=== PATIENT | male | born 1970 | race African-American/Black ===

== ENCOUNTER 2019-06-24 12:34 | Inpatient (IN) | payer OTHER ==
[2019-06-24 12:58] VITALS: BMI 27.0
--- NOTE | 2019-06-24 13:49 | HP ---
CIWA Score Nausea/Vomitin Muscle Tremors: 3 Anxiety: 3 Agitation: 2 Paroxysmal Sweats: 1-Minimal Palms Moist Orientation: 0-Oriented Tacttile Disturbances: 1-Very Mild Itch/Numbness Auditory Disturbances: 0-None Visual Disturbances: 0-None Headache: 2-Mild CIWA-Ar Total Score: 14 - Admission Criteria OASAS Guidelines: Admission for Medically Managed Detox: Requires at least one of the followin. CIWA greater than 12 2. Seizures within the past 24 hours 3. Delirium tremens within the past 24 hours 4. Hallucinations within the past 24 hours 5. Acute intervention needed for co occurring medical disorder 6. Acute intervention needed for co occurring psychiatric disorder 7. Severe withdrawal that cannot be handled at a lower level of care (continued vomiting, continued diarrhea, abnormal vital signs) requiring intravenous medication and/or fluids 8. Admitting History and Physical - Admission Chief Complaint: i need help to stop drinking alcohol,ccoaine,marijuana History of Present Illness: this 48 years old male with alcohol and cocaine dependence,marijuna dependence seeking detox,last detox [facility] in 05/05 denied seizure denied syncope History Source: Patient Limitations to Obtaining History: No Limitations - Past Surgical History Past Surgical History: Yes: None - Smoking History Smoking history: Current every day smoker Have you smoked in the past 12 months: Yes Aproximately how many cigarettes per day: 10 - Alcohol/Substance Use Hx Alcohol Use: Yes History of Substance Use: reports: Cocaine, Marijuana - Social History Usual Living Arrangement: Yes: Other (live with uncle) Occupation: unemployed History of Recent Travel: Yes Admission [facility] Chief Complaint: i need help to stop drinking alcohol,cocaine and marijuana Allergies/Adverse Reactions: Allergies Allergy/AdvReac Type Severity Reaction Status Date / Time No Known Drug Allergies Allergy Verified 06/24/19 12:54 History of Present Illness: this 48 years old male with alcohol,cocaine and marijuana dependence,seeking detox, withdrawal symptom last detox [facility] in 05/05 nicotine dependence 10 cigarette/day weight loss had previous admission before longest period of sobriety 1 year plan for rehab after detox Exam Limitations: No Limitations - Ebola screening Have you traveled outside of the country in the last 21 days: No Have you had contact with anyone from an Ebola affected area: No - Review of Systems Constitutional: Loss of Appetite, Malaise, Night Sweats, Changes in sleep, Weakness, Unintentional Wgt. Loss EENT: reports: Nose Congestion Respiratory: reports: No Symptoms reported Cardiac: reports: No Symptoms Reported GI: reports: Nausea, Poor Appetite, Abdominal cramping : reports: No Symptoms Reported Musculoskeletal: reports: Back Pain, Muscle Pain Integumentary: reports: Dryness Neuro: reports: Headache, Tremors Endocrine: reports: No Symptoms Reported Hematology: reports: No Symptoms Reported Psychiatric: reports: No Sypmtoms Reported, Judgement Intact, Mood/Affect Appropiate, Orientated x3, other (insomnia) Other Systems: Reviewed and Negative Patient History - Patient Medical History Hx Anemia: No Hx Asthma: No Hx Chronic Obstructive Pulmonary Disease (COPD): No Hx Cancer: No Hx Cardiac Disorders: No Hx Congestive Heart Failure: No Hx Hypertension: No Hx Hypercholesterolemia: No Hx Pacemaker: No Hx Seizures: No Hx Dementia: No Hx Diabetes: No Hx Gastrointestinal Disorders: No Hx Liver Disease: No Hx Genitourinary Disorders: No Hx Sexually Transmitted Disorders: No Hx Renal Disease (ESRD): No Hx Thyroid Disease: No Hx Human Immunodeficiency Virus (HIV): No (last 2018 negative) Hx Hepatitis C: No Hx Depression: Yes Hx Suicide Attempt: No Hx Bipolar Disorder: No Hx Schizophrenia: No Other Medical History: no suicidal,no homicidal - Patient Surgical History Past Surgical History: No Hx Neurologic Surgery: No Hx Cataract Extraction: No Hx Cardiac Surgery: No Hx Lung Surgery: No Hx Breast Surgery: No Hx Breast Biopsy: No Hx Abdominal Surgery: No Hx Appendectomy: No Hx Cholecystectomy: No Hx Genitourinary Surgery: No Hx Section: No Hx Orthopedic Surgery: No Anesthesia Reaction: No - PPD History Previous Implant?: Yes Documented Results: Positive w/o proof Date: 03/20/15 Results: NEGATIVE CXR PPD to be Administered?: No - Smoking Cessation Smoking history: Current every day smoker Have you smoked in the past 12 months: Yes Aproximately how many cigarettes per day: 10 Hx Chewing Tobacco Use: No Initiated information on smoking cessation: Yes 'Breaking Loose' booklet given: 06/24/19 - Substance & Tx. History Hx Alcohol Use: Yes Hx Substance Use: Yes Substance Use Type: Alcohol, Cocaine Hx Substance Use Treatment: Yes ([facility] in 05/05) - Substances abused Alcohol Substance route: Oral Frequency: Daily Amount used: 4 six packs of 16oz beers Age of first use: 10 Date of last use: 06/23/19 Cocaine Substance route: Smoking Frequency: Daily Amount used: $80/day Age of first use: 14 Date of last use: 06/22/19 Marijuana/Hashish Substance route: Smoking Frequency: Daily Amount used: 5$ Age of first use: 10 Date of last use: 06/23/19 Admission Physical Exam [facility] - Vital Signs Vital Signs: Vital Signs - 24 hr 06/24/19 12:55 Temperature 97.7 F Pulse Rate 91 H Respiratory 16 Rate Blood Pressure 143/83 - Physical General Appearance: Yes: Moderate Distress, Tremorous, Irritable, Sweating, Anxious HEENTM: Yes: Normal ENT Inspection, MARTY, Pharynx Normal Respiratory: Yes: Lungs Clear, Normal Breath Sounds, No Respiratory Distress Neck: Yes: Within Normal Limits, Supple, Trachea in good position Breast: Yes: Within Normal Limits Cardiology: Yes: Within Normal Limits, Regular Rhythm, Regular Rate, S1, S2 Abdominal: Yes: Within Normal Limits, Normal Bowel Sounds, Non Tender, Soft Genitourinary: Yes: Within Normal Limits Back: Yes: Muscle Spasm Musculoskeletal: Yes: Back pain, Muscle Pain, Other (mild painin the left knee) Extremities: Yes: Tremors 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: 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: 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 NML intact, Fully Oriented, Alert, Motor Strength 5/5 Integumentary: Yes: Clammy Lymphatic: Yes: Within Normal Limits - Diagnostic (1) Alcohol dependence with withdrawal, uncomplicated Current Visit: No Status: Acute (2) Cannabis dependence, uncomplicated Current Visit: No Status: Acute (3) Cocaine dependence, uncomplicated Current Visit: No Status: Acute (4) Nicotine dependence Current Visit: No Status: Chronic Qualifiers: Nicotine product type: cigarettes Substance use status: uncomplicated Qualified Code(s): F17.210 - Nicotine dependence, cigarettes, uncomplicated (5) Positive PPD Current Visit: Yes Status: Acute Cleared for Admission [facility] - Detox or Rehab [facility] Level of Care: Medically Managed (ativan regimen) Detox Regimen/Protocol: Not Applicable (ativan regimen) Breathalyzer - Breathalyzer Breathalyzer: 0.006 Urine Drug Screen - Test Device Lot number: [id number] Expiration date: 02/14/21 - Control Is test valid?: Yes - Results Drug screen NEGATIVE: No Urine drug screen results: THC-Marijuana, RAÚL-Cocaine Inpatient Rehab Admission - Rehab Decision to Admit Inpatient rehab admission?: No
[2019-06-24] MEDS ORDERED: MENTHOL/PHENOL 1 EACH UD MM PRN (13:56)
[2019-06-24] MEDS ORDERED: hydrOXYzine PAMOATE 25 MG CAPSULE (FP) PO PRN (13:56)
[2019-06-24] MEDS ORDERED: METHOCARBAMOL 500 MG TABLET PO PRN (13:56)
[2019-06-24] MEDS ORDERED: MAGNESIUM HYDROX 2400MG/30ML ORAL SUSPENSION 30 ML CUP PO PRN (13:56)
[2019-06-24] MEDS ORDERED: MAG HYDROX/AL HYDROX/SIMETH 30 ML UNIT-DOSE CUP PO PRN (13:56)
[2019-06-24] MEDS ORDERED: MAGNESIUM CITRATE 300 ML BOTTLE PO PRN (13:56)
[2019-06-24] MEDS ORDERED: IBUPROFEN 400 MG TABLET (FP) PO PRN (13:56)
[2019-06-24] MEDS ORDERED: ACETAMINOPHEN 325 MG TABLET (FP) PO PRN ×2 (13:56)
[2019-06-24] MEDS ORDERED: LORazepam 1 MG TABLET PO PRN (13:56)
[2019-06-24] MEDS ORDERED: BISMUTH SUBSALICYLATE 524 MG/30 ML UD PO PRN (13:56)
[2019-06-24] MEDS: LORazepam 2 MG TABLET PO SCH ×2 (18:02→22:24)
[2019-06-24] MEDS: MELATONIN 5 MG TABLETS PO PRN (22:24)
[2019-06-24] MEDS: THIAMINE HCL 100 MG TABLET (FP) PO SCH (22:24)
[2019-06-25] MEDS: LORazepam 2 MG TABLET PO SCH ×4 (05:32→22:02)
--- NOTE | 2019-06-25 09:59 | PN ---
S CIWA - CIWA Score Nausea/Vomitin-Mild Nausea/No Vomiting Muscle Tremors: 3 Anxiety: 3 Agitation: 2 Paroxysmal Sweats: 2 Orientation: 1-Uncertain about Date Tacttile Disturbances: 0-None Auditory Disturbances: 0-None Visual Disturbances: 0-None Headache: 1-Very Mild CIWA-Ar Total Score: 13 BHS Progress Note (SOAP) Subjective: 48 years old male admitted on 06/24/19 for alcohol withdrawal sx treated with ativan detox regimen ate breakfast ambulating on hallway sleep through the night Objective: 06/25/19 09:58 Vital Signs Temperature 96.7 F L 06/25/19 09:27 Pulse Rate 101 H 06/25/19 09:27 Respiratory Rate 18 06/25/19 09:27 Blood Pressure 116/79 06/25/19 09:27 O2 Sat by Pulse Oximetry (%) 06/25/19 09:58 lab pending Assessment: 06/25/19 09:58 alcohol withdrawal sx Plan: continue ativan detox regimen
[2019-06-25] MEDS: PRENATAL VITAMINS W/ FOLIC ACID TABLET (FP) PO SCH (10:16)
[2019-06-25 11:01] LABS: HEMATOCRIT 40.6 % (35.4-49); HEMOGLOBIN 13.6 GM/dL (11.7-16.9); MCH 29.9 pg (25.7-33.7); MCHC 33.6 g/dl (32.0-35.9); MEAN CELL VOLUME 89.1 fl (80-96); MEAN PLT VOLUME 7.5 fl (7.5-11.1); PLATELET COUNT 237 K/MM3 (134-434); RBC 4.56 M/mm3 (4.00-5.60); RDW 14.3 % (11.9-15.9); WHITE BLOOD COUNT 3.7 K/mm3 (4.0-10.0)
[2019-06-25 11:13] LABS: BILIRUBIN,TOTAL 0.7 mg/dL (0.2-1); BLOOD UREA NITROGEN 9.7 mg/dL (7-18); CREATININE 0.9 mg/dL (0.55-1.3); POTASSIUM 3.5 mmol/L (3.5-5.1)
[2019-06-25] MEDS: THIAMINE HCL 100 MG TABLET (FP) PO SCH (22:02)
[2019-06-25] MEDS: MELATONIN 5 MG TABLETS PO PRN (22:02)
[2019-06-26] MEDS: LORazepam 1 MG TABLET PO SCH ×4 (06:02→22:15)
[2019-06-26] MEDS: PRENATAL VITAMINS W/ FOLIC ACID TABLET (FP) PO SCH (10:29)
--- NOTE | 2019-06-26 10:35 | PN ---
[facility] CIWA - CIWA Score Nausea/Vomitin-No Nausea/No Vomiting Muscle Tremors: 2 Anxiety: 2 Agitation: 1-Slight > Activity Paroxysmal Sweats: 1-Minimal Palms Moist Orientation: 1-Uncertain about Date (date of week) Tacttile Disturbances: 1-Very Mild Itch/Numbness Auditory Disturbances: 1-Very Mild Visual Disturbances: 0-None Headache: 1-Very Mild CIWA-Ar Total Score: 10 S Progress Note (SOAP) Subjective: 48 years old male admitted on 06/24/19 for alcohol withdrawal sx management treated with ativan detox regimen ate breakfast tolerated food and fluid well mild sweating warm shower for comfort Objective: 06/26/19 10:35 Vital Signs Temperature 98.9 F 06/26/19 09:24 Pulse Rate 85 06/26/19 09:24 Respiratory Rate 18 06/26/19 09:24 Blood Pressure 115/72 06/26/19 09:24 O2 Sat by Pulse Oximetry (%) Laboratory Last Values WBC 3.7 K/mm3 (4.0-10.0) L 06/25/19 07:50 RBC 4.56 M/mm3 (4.00-5.60) 06/25/19 07:50 Hgb 13.6 GM/dL (11.7-16.9) 06/25/19 07:50 Hct 40.6 % (35.4-49) 06/25/19 07:50 MCV 89.1 fl (80-96) 06/25/19 07:50 MCH 29.9 pg (25.7-33.7) 06/25/19 07:50 MCHC 33.6 g/dl (32.0-35.9) 06/25/19 07:50 RDW 14.3 % (11.9-15.9) 06/25/19 07:50 Plt Count 237 K/MM3 (134-434) 06/25/19 07:50 MPV 7.5 fl (7.5-11.1) 06/25/19 07:50 Sodium 140 mmol/L (136-145) 06/25/19 07:50 Potassium 3.5 mmol/L (3.5-5.1) 06/25/19 07:50 Chloride 105 mmol/L (98-107) 06/25/19 07:50 Carbon Dioxide 26 mmol/L (21-32) 06/25/19 07:50 Anion Gap 9 MMOL/L (8-16) 06/25/19 07:50 BUN 9.7 mg/dL (7-18) 06/25/19 07:50 Creatinine 0.9 mg/dL (0.55-1.3) 06/25/19 07:50 Est GFR (CKD-EPI)AfAm 115.02 06/25/19 07:50 Est GFR (CKD-EPI)NonAf 99.24 06/25/19 07:50 Random Glucose 89 mg/dL (74-106) 06/25/19 07:50 Calcium 9.0 mg/dL (8.5-10.1) 06/25/19 07:50 Total Bilirubin 0.7 mg/dL (0.2-1) 06/25/19 07:50 AST 19 U/L (15-37) 06/25/19 07:50 ALT 19 U/L (13-61) 06/25/19 07:50 Alkaline Phosphatase 63 U/L (45-117) 06/25/19 07:50 Total Protein 7.0 g/dl (6.4-8.2) 06/25/19 07:50 Albumin 3.0 g/dl (3.4-5.0) L 06/25/19 07:50 RPR Titer Nonreactive (NONREACTIVE) 06/25/19 07:50 lab noted Assessment: 06/26/19 10:35 alcohol withdrawal sx Plan: ativan regimen
[2019-06-26] MEDS: THIAMINE HCL 100 MG TABLET (FP) PO SCH (22:15)
[2019-06-26] MEDS: MELATONIN 5 MG TABLETS PO PRN (22:15)
[2019-06-27] MEDS ORDERED: LORazepam 0.5 MG TABLET PO PRN
[2019-06-27] MEDS: LORazepam 0.5 MG TABLET PO SCH ×4 (06:03→22:13)
[2019-06-27] MEDS: PRENATAL VITAMINS W/ FOLIC ACID TABLET (FP) PO SCH (10:44)
--- NOTE | 2019-06-27 12:00 | PN ---
S CIWA - CIWA Score Nausea/Vomitin-No Nausea/No Vomiting Muscle Tremors: 2 Anxiety: 2 Agitation: 1-Slight > Activity Paroxysmal Sweats: 1-Minimal Palms Moist Orientation: 0-Oriented Tacttile Disturbances: 0-None Auditory Disturbances: 0-None Visual Disturbances: 0-None Headache: 0-None Present CIWA-Ar Total Score: 6 BHS Progress Note (SOAP) Subjective: 48 years old male admitted on 06/24/19 for alcohol withdrawal sx management treated with ativan detox regimen ate breakfast and lunch feeling better today slept through the night discuss aftercare with staff Objective: 06/27/19 12:00 Vital Signs Temperature 98.4 F 06/27/19 09:28 Pulse Rate 79 06/27/19 09:28 Respiratory Rate 18 06/27/19 09:28 Blood Pressure 114/64 06/27/19 09:28 O2 Sat by Pulse Oximetry (%) Laboratory Last Values WBC 3.7 K/mm3 (4.0-10.0) L 06/25/19 07:50 RBC 4.56 M/mm3 (4.00-5.60) 06/25/19 07:50 Hgb 13.6 GM/dL (11.7-16.9) 06/25/19 07:50 Hct 40.6 % (35.4-49) 06/25/19 07:50 MCV 89.1 fl (80-96) 06/25/19 07:50 MCH 29.9 pg (25.7-33.7) 06/25/19 07:50 MCHC 33.6 g/dl (32.0-35.9) 06/25/19 07:50 RDW 14.3 % (11.9-15.9) 06/25/19 07:50 Plt Count 237 K/MM3 (134-434) 06/25/19 07:50 MPV 7.5 fl (7.5-11.1) 06/25/19 07:50 Sodium 140 mmol/L (136-145) 06/25/19 07:50 Potassium 3.5 mmol/L (3.5-5.1) 06/25/19 07:50 Chloride 105 mmol/L (98-107) 06/25/19 07:50 Carbon Dioxide 26 mmol/L (21-32) 06/25/19 07:50 Anion Gap 9 MMOL/L (8-16) 06/25/19 07:50 BUN 9.7 mg/dL (7-18) 06/25/19 07:50 Creatinine 0.9 mg/dL (0.55-1.3) 06/25/19 07:50 Est GFR (CKD-EPI)AfAm 115.02 06/25/19 07:50 Est GFR (CKD-EPI)NonAf 99.24 06/25/19 07:50 Random Glucose 89 mg/dL (74-106) 06/25/19 07:50 Calcium 9.0 mg/dL (8.5-10.1) 06/25/19 07:50 Total Bilirubin 0.7 mg/dL (0.2-1) 06/25/19 07:50 AST 19 U/L (15-37) 06/25/19 07:50 ALT 19 U/L (13-61) 06/25/19 07:50 Alkaline Phosphatase 63 U/L (45-117) 06/25/19 07:50 Total Protein 7.0 g/dl (6.4-8.2) 06/25/19 07:50 Albumin 3.0 g/dl (3.4-5.0) L 06/25/19 07:50 RPR Titer Nonreactive (NONREACTIVE) 06/25/19 07:50 lab noted Assessment: 06/27/19 12:00 alcohol withdrawal Plan: ativan regimen
[2019-06-27] MEDS: THIAMINE HCL 100 MG TABLET (FP) PO SCH (22:12)
[2019-06-28] MEDS ORDERED: LORazepam 0.5 MG TABLET PO ONE (05:00)
[2019-06-28 06:16] VITALS: BP 125/75; PULSE 70; TEMP 97.7
--- NOTE | 2019-06-28 11:33 | DS ---
[facility] Detox Discharge Summary Admission Date: 06/24/19 Discharge Date: 06/28/19 - History Present History: Alcohol Dependence Additional Comments: 48 years old male admitted on 06/24/19 for alcohol withdrawal sx management treated with ativan detox regimen patient completed ativan detox regimen today routine discharged today patient left the detox unit round 0730am today keno writer has not assessed nor evaluated the patient prior to be discharged - Physical Exam Results Vital Signs: Vital Signs Temperature 97.7 F 06/28/19 06:15 Pulse Rate 70 06/28/19 06:15 Respiratory Rate 18 06/28/19 06:15 Blood Pressure 125/75 06/28/19 06:15 O2 Sat by Pulse Oximetry (%) Pertinent Admission Physical Exam Findings: alcohol withdrawal sx Laboratory Last Values WBC 3.7 K/mm3 (4.0-10.0) L 06/25/19 07:50 RBC 4.56 M/mm3 (4.00-5.60) 06/25/19 07:50 Hgb 13.6 GM/dL (11.7-16.9) 06/25/19 07:50 Hct 40.6 % (35.4-49) 06/25/19 07:50 MCV 89.1 fl (80-96) 06/25/19 07:50 MCH 29.9 pg (25.7-33.7) 06/25/19 07:50 MCHC 33.6 g/dl (32.0-35.9) 06/25/19 07:50 RDW 14.3 % (11.9-15.9) 06/25/19 07:50 Plt Count 237 K/MM3 (134-434) 06/25/19 07:50 MPV 7.5 fl (7.5-11.1) 06/25/19 07:50 Sodium 140 mmol/L (136-145) 06/25/19 07:50 Potassium 3.5 mmol/L (3.5-5.1) 06/25/19 07:50 Chloride 105 mmol/L (98-107) 06/25/19 07:50 Carbon Dioxide 26 mmol/L (21-32) 06/25/19 07:50 Anion Gap 9 MMOL/L (8-16) 06/25/19 07:50 BUN 9.7 mg/dL (7-18) 06/25/19 07:50 Creatinine 0.9 mg/dL (0.55-1.3) 06/25/19 07:50 Est GFR (CKD-EPI)AfAm 115.02 06/25/19 07:50 Est GFR (CKD-EPI)NonAf 99.24 06/25/19 07:50 Random Glucose 89 mg/dL (74-106) 06/25/19 07:50 Calcium 9.0 mg/dL (8.5-10.1) 06/25/19 07:50 Total Bilirubin 0.7 mg/dL (0.2-1) 06/25/19 07:50 AST 19 U/L (15-37) 06/25/19 07:50 ALT 19 U/L (13-61) 06/25/19 07:50 Alkaline Phosphatase 63 U/L (45-117) 06/25/19 07:50 Total Protein 7.0 g/dl (6.4-8.2) 06/25/19 07:50 Albumin 3.0 g/dl (3.4-5.0) L 06/25/19 07:50 RPR Titer Nonreactive (NONREACTIVE) 06/25/19 07:50 lab noted - Treatment Hospital Course: Detox Protocol Followed, Responded well Patient has Accepted a Rehab Referral to: ready willing able - Medication Discharge Medications: Ambulatory Orders NK [No Known Home Medication] 05/28/15 - Diagnosis (1) Alcohol dependence with withdrawal, uncomplicated Status: Acute (2) Positive PPD Status: Resolved (3) Nicotine dependence Status: Acute Qualifiers: Nicotine product type: cigarettes Substance use status: in withdrawal Qualified Code(s): F17.213 - Nicotine dependence, cigarettes, with withdrawal - AMA Did Patient Leave Against Medical Advice: No
== END 2019-06-28 07:22 | disposition home or self-care (01) | DRG 774 ==
LOC: YASAS 12:34 → Y3N 14:05
PROVIDERS: ADMIT Allergy & Immunology; ATTEND Allergy & Immunology
PROC: HZ2ZZZZ Detoxification Services for Substance Abuse Treatment (ICD-10-PCS; principal; 2019-06-24)
DX: F10.230 Alcohol dependence with withdrawal, uncomplicated (principal); F14.20 Cocaine dependence, uncomplicated; F12.20 Cannabis dependence, uncomplicated; F17.213 Nicotine dependence, cigarettes, with withdrawal; R76.11 Nonspecific reaction to tuberculin skin test without active tuberculosis; R63.4 Abnormal weight loss; Z68.27 Body mass index [BMI] 27.0-27.9, adult
CPT/HCPCS: 36415; 71046-TC-FY; 80053; 85027; 86593

== ENCOUNTER 2020-02-06 11:01 | Inpatient (IN) | payer OTHER ==
--- NOTE | 2020-02-06 11:41 | BHS.RME ---
Substance Use & Tx History - Substance Use History Alcohol Substance amount: 2 pints Henessey, 2 x 6 pack of 12 ounce beer Frequency of use: Daily Substance route: Oral Date of Last Use: 02/06/20 (First drink age 10 y. No seizuer, no blackout. 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) Cocaine- Powder Substance amount: with Crack $100 Frequency of use: Daily Substance route: Smoking Date of Last Use: 02/04/20 (First use age 14 y) Cannabis Substance amount: $10 Frequency of use: Daily Substance route: Smoking Physical/Psych/Mental Status - Behavior General Behavior: Decreased activity Eye Contact: Normal - Cooperativeness Cooperativeness: Cooperative - Thinking Thought Processes: Tight Thought content: Future oriented - Physical Health Problems Is patient presently having any pain?: No Does patient presently have any injuries (include location): No Does patient currently have a fever: No CIWA Nausea/Vomitin-Mild Nausea/No Vomiting Muscle Tremors: 3 Anxiety: 4-Mod. Anxious/Guarded Agitation: 0-Normal Activity Paroxysmal Sweats: 1-Minimal Palms Moist Orientation: 3-Disoriented Date>2 days Tacttile Disturbances: 0-None Auditory Disturbances: 0-None Visual Disturbances: 0-None Headache: 0-None Present CIWA-Ar Total Score: 12
--- NOTE | 2020-02-06 13:01 | HP ---
CIWA Score Nausea/Vomitin-Mild Nausea/No Vomiting Muscle Tremors: 3 Anxiety: 4-Mod. Anxious/Guarded Agitation: 0-Normal Activity Paroxysmal Sweats: 1-Minimal Palms Moist Orientation: 3-Disoriented Date>2 days Tacttile Disturbances: 0-None Auditory Disturbances: 0-None Visual Disturbances: 0-None Headache: 0-None Present CIWA-Ar Total Score: 12 - Admission Criteria OASAS Guidelines: Admission for Medically Managed Detox: Requires at least one of the followin. CIWA greater than 12 2. Seizures within the past 24 hours 3. Delirium tremens within the past 24 hours 4. Hallucinations within the past 24 hours 5. Acute intervention needed for co occurring medical disorder 6. Acute intervention needed for co occurring psychiatric disorder 7. Severe withdrawal that cannot be handled at a lower level of care (continued vomiting, continued diarrhea, abnormal vital signs) requiring intravenous medication and/or fluids 8. Admitting History and Physical - Admission Chief Complaint: " I neeed to stop drinking and using cocaine." History of Present Illness: 49 year old male with history of alcohol dependence with withdrawal, cocaine use disorder, cannabis use disorder, nicotine dependence. She was last here in [facility] 06/24-06/28/19 and completed detox ( Ativan Treatment) Substance Use & Tx History - Substance Use History Alcohol Substance amount: 2 pints Henessey, 2 x 6 pack of 12 ounce beer Frequency of use: Daily Substance route: Oral Date of Last Use: 02/06/20 (First drink age 10 y. No seizuer, no blackout. 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 SEYMOUR: 0 CIWA: 12 Patient meets criteria due to poor environment for recovery, poor judgment into her disorder and is at high risk for relapse. History Source: Patient Limitations to Obtaining History: No Limitations - Past Surgical History Past Surgical History: Yes: Hernia Repair - Smoking History Smoking history: Current every day smoker Have you smoked in the past 12 months: Yes Aproximately how many cigarettes per day: 10 - Alcohol/Substance Use Hx Alcohol Use: Yes History of Substance Use: reports: Cocaine, Marijuana - Social History Usual Living Arrangement: Yes: Other Do you think of yourself as: Straight/Heterosexual ADL: Independent Occupation: unemployed History of Recent Travel: Yes Admission [facility] Allergies/Adverse Reactions: Allergies Allergy/AdvReac Type Severity Reaction Status Date / Time No Known Drug Allergies Allergy Verified 06/24/19 12:54 Exam Limitations: No Limitations - Ebola screening Have you traveled outside of the country in the last 21 days: No Have you had contact with anyone from an Ebola affected area: No Have you been sick,other than usual withdrawal symptoms: No Do you have a fever: No - Review of Systems Constitutional: Chills, Diaphoresis, Unintentional Wgt. Loss EENT: reports: No Symptoms Reported Respiratory: reports: No Symptoms reported Cardiac: reports: No Symptoms Reported GI: reports: No Symptoms Reported : reports: No Symptoms Reported Musculoskeletal: reports: No Symptoms Reported Integumentary: reports: No Symptoms Reported Neuro: reports: No Symptoms reported Endocrine: reports: No Symptoms Reported Hematology: reports: No Symptoms Reported Psychiatric: reports: Judgement Intact, Mood/Affect Appropiate, Orientated x3, Agitated, Anxious Other Systems: Reviewed and Negative Patient History - Patient Medical History Hx Anemia: No Hx Asthma: No Hx Chronic Obstructive Pulmonary Disease (COPD): No Hx Cancer: No Hx Cardiac Disorders: No Hx Congestive Heart Failure: No Hx Hypertension: No Hx Hypercholesterolemia: No Hx Pacemaker: No Hx Seizures: No Hx Dementia: No Hx Diabetes: No Hx Gastrointestinal Disorders: No Hx Liver Disease: No Hx Genitourinary Disorders: No Hx Sexually Transmitted Disorders: No Hx Renal Disease (ESRD): No Hx Thyroid Disease: No Hx Human Immunodeficiency Virus (HIV): No (last 2018 negative) Hx Hepatitis C: No Hx Depression: Yes Hx Suicide Attempt: No Hx Bipolar Disorder: No Hx Schizophrenia: No - Patient Surgical History Past Surgical History: No Hx Neurologic Surgery: No Hx Cataract Extraction: No Hx Cardiac Surgery: No Hx Lung Surgery: No Hx Breast Surgery: No Hx Breast Biopsy: No Hx Abdominal Surgery: No Hx Appendectomy: No Hx Cholecystectomy: No Hx Genitourinary Surgery: No Hx Section: No Hx Orthopedic Surgery: No Anesthesia Reaction: No - PPD History Previous Implant?: Yes Documented Results: Positive w/proof Date: 06/25/19 Results: NEGATIVE CXR PPD to be Administered?: No - Smoking Cessation Smoking history: Current every day smoker Have you smoked in the past 12 months: Yes Aproximately how many cigarettes per day: 10 Hx Chewing Tobacco Use: No Initiated information on smoking cessation: Yes 'Breaking Loose' booklet given: 02/06/20 - Substances abused Alcohol Substance route: Oral Frequency: Daily Amount used: 2 six pack beers Age of first use: 10 Date of last use: 02/06/20 Cocaine Substance route: Inhalation Frequency: Daily Amount used: $100 Age of first use: 14 Date of last use: 02/04/20 Marijuana/Hashish Substance route: Smoking Frequency: Daily Amount used: $5 Age of first use: 10 Date of last use: 02/05/20 Admission Physical Exam [facility] - Physical General Appearance: Yes: No Apparent Distress, Nourished, Appropriately Dressed, Thin, Tremorous, Irritable, Sweating, Anxious HEENTM: Yes: EOMI, Hearing grossly Normal, Normal ENT Inspection, Normocephalic, Normal Voice, MARTY, Pharynx Normal, Tm's normal Respiratory: Yes: Chest Non-Tender, Lungs Clear, Normal Breath Sounds, No Respiratory Distress, No Accessory Muscle Use Neck: Yes: No masses,lesions,Nodules, Supple, Trachea in good position Breast: Yes: Within Normal Limits Cardiology: Yes: Regular Rhythm, Regular Rate, S1, S2 Abdominal: Yes: Normal Bowel Sounds, Non Tender, Flat, Soft Genitourinary: Yes: Within Normal Limits Back: Yes: Normal Inspection Musculoskeletal: Yes: full range of Motion, Gait Steady, Pelvis Stable Extremities: Yes: Normal Capillary Refill, Normal Inspection, Normal Range of Motion, Non-Tender 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, Fully Oriented, Alert, Motor Strength 5/5, Normal Mood/Affect, Normal Response Integumentary: Yes: Normal Color, Dry, Warm Lymphatic: Yes: Within Normal Limits - Diagnostic (1) Alcohol dependence with withdrawal, uncomplicated Current Visit: Yes Status: Acute (2) Cannabis dependence, uncomplicated Current Visit: Yes Status: Acute (3) Cocaine dependence, uncomplicated Current Visit: Yes Status: Acute (4) Nicotine dependence Current Visit: Yes Status: Acute Qualifiers: Nicotine product type: cigarettes Substance use status: in withdrawal Qualified Code(s): F17.213 - Nicotine dependence, cigarettes, with withdrawal (5) Positive PPD Current Visit: Yes Status: Resolved Cleared for Admission S - Detox or Rehab [facility] Level of Care: Medically Managed Detox Regimen/Protocol: Ativan Claeared for Rehab Admission: No Screened but not Admitted - Documentation of Visit Screened but not Admitted: No Breathalyzer - Breathalyzer Breathalyzer: 0 Urine Drug Screen - Test Device Lot number: [id number] Expiration date: 03/17/21 - Control Is test valid?: Yes - Results Drug screen NEGATIVE: No Urine drug screen results: THC-Marijuana, RAÚL-Cocaine Inpatient Rehab Admission - Rehab Decision to Admit Inpatient rehab admission?: No
[2020-02-06] MEDS ORDERED: ACETAMINOPHEN 325 MG TABLET (FP) PO PRN ×2 (13:17)
[2020-02-06] MEDS ORDERED: METHOCARBAMOL 500 MG TABLET PO PRN (13:17)
[2020-02-06] MEDS ORDERED: IBUPROFEN 400 MG TABLET (FP) PO PRN (13:17)
[2020-02-06] MEDS ORDERED: LORazepam 1 MG TABLET PO PRN (13:17)
[2020-02-06] MEDS ORDERED: NICOTINE POLACRILEX 2 MG GUM BUC PRN (13:17)
[2020-02-06] MEDS ORDERED: BISMUTH SUBSALICYLATE 524 MG/30 ML UD PO PRN (13:17)
[2020-02-06] MEDS ORDERED: MENTHOL/PHENOL 1 EACH UD MM PRN (13:17)
[2020-02-06] MEDS ORDERED: MAGNESIUM CITRATE 300 ML BOTTLE PO PRN (13:17)
[2020-02-06] MEDS ORDERED: MAGNESIUM HYDROX 2400MG/30ML ORAL SUSPENSION 30 ML CUP PO PRN (13:17)
[2020-02-06] MEDS ORDERED: ONDANSETRON *ODT* 4 MG TABLET SL ONE (13:17)
[2020-02-06] MEDS ORDERED: MAG HYDROX/AL HYDROX/SIMETH 30 ML UNIT-DOSE CUP PO PRN (13:17)
[2020-02-06 14:17] VITALS: BMI 23.6
[2020-02-06] MEDS: LORazepam 2 MG TABLET PO SCH ×3 (15:15→22:28)
[2020-02-06] MEDS: PRENATAL VITAMINS W/ FOLIC ACID TABLET (FP) PO SCH (15:15)
[2020-02-06] MEDS: hydrOXYzine PAMOATE 25 MG CAPSULE (FP) PO SCH ×3 (15:16→22:28)
[2020-02-06] MEDS: NICOTINE 7 MG/24 HOURS TOPICAL PATCH TD SCH (15:16)
[2020-02-06] MEDS: MELATONIN 5 MG TABLETS PO SCH (22:28)
[2020-02-06] MEDS: THIAMINE HCL 100 MG TABLET (FP) PO SCH (22:28)
[2020-02-07] MEDS: hydrOXYzine PAMOATE 25 MG CAPSULE (FP) PO SCH ×5 (06:08→22:40)
[2020-02-07] MEDS: LORazepam 2 MG TABLET PO SCH ×4 (06:08→22:40)
[2020-02-07 10:09] LABS: HEMATOCRIT 41.5 % (35.4-49); HEMOGLOBIN 13.8 GM/dL (11.7-16.9); MCH 30.5 pg (25.7-33.7); MCHC 33.2 g/dl (32.0-35.9); MEAN CELL VOLUME 91.8 fl (80-96); MEAN PLT VOLUME 7.8 fl (7.5-11.1); PLATELET COUNT 267 K/MM3 (134-434); RBC 4.52 M/mm3 (4.00-5.60); RDW 14.5 % (11.9-15.9); WHITE BLOOD COUNT 3.6 K/mm3 (4.0-10.0)
[2020-02-07 10:24] LABS: ALBUMIN 3.5 g/dl (3.4-5.0); BILIRUBIN,TOTAL 0.8 mg/dL (0.2-1); BLOOD UREA NITROGEN 12.8 mg/dL (7-18); CALCIUM 8.8 mg/dL (8.5-10.1); CREATININE 0.9 mg/dL (0.55-1.3); POTASSIUM 3.8 mmol/L (3.5-5.1); TOT PROT 7.7 g/dl (6.4-8.2)
[2020-02-07] MEDS: NICOTINE 7 MG/24 HOURS TOPICAL PATCH TD SCH (10:37)
[2020-02-07] MEDS: PRENATAL VITAMINS W/ FOLIC ACID TABLET (FP) PO SCH (10:37)
--- NOTE | 2020-02-07 11:08 | PN ---
S CIWA - CIWA Score Nausea/Vomitin-Mild Nausea/No Vomiting Muscle Tremors: 2 Anxiety: 2 Agitation: 2 Paroxysmal Sweats: No Perspiration Orientation: 0-Oriented Tacttile Disturbances: 0-None Auditory Disturbances: 0-None Visual Disturbances: 2-Mild Sensitivity Headache: 1-Very Mild CIWA-Ar Total Score: 10 S Progress Note (SOAP) Subjective: 49 years old male admitted on 02/06/20 for alcohol withdrawal sx management cora ting with ativan detox regiment feeling tired bmi 23.6 ensure 120 ml po tid with meals resting in bed limited conversation with staff Objective: 02/07/20 11:11 Vital Signs - 24 hr 02/06/20 02/06/20 02/06/20 14:13 15:16 16:46 Temperature 98.1 F 97.5 F L 97.5 F L Pulse Rate 91 H 69 81 Respiratory 20 18 18 Rate Blood Pressure 129/81 137/87 122/86 O2 Sat by Pulse 100 Oximetry (%) 02/06/20 02/07/20 02/07/20 21:08 06:13 09:02 Temperature 97.5 F L 98.1 F 97.6 F Pulse Rate 70 56 L 62 Respiratory 18 18 18 Rate Blood Pressure 136/90 121/79 113/66 O2 Sat by Pulse 100 97 Oximetry (%) Laboratory Tests 02/07/20 02/07/20 08:00 08:00 WBC 3.6 L RBC 4.52 Hgb 13.8 Hct 41.5 MCV 91.8 MCH 30.5 MCHC 33.2 RDW 14.5 Plt Count 267 MPV 7.8 Sodium 140 Potassium 3.8 Chloride 107 Carbon Dioxide 25 Anion Gap 7 L BUN 12.8 Creatinine 0.9 Est GFR (CKD-EPI)AfAm 114.21 Est GFR (CKD-EPI)NonAf 98.54 Random Glucose 113 H Calcium 8.8 Total Bilirubin 0.8 AST 23 ALT 18 Alkaline Phosphatase 55 Total Protein 7.7 Albumin 3.5 02/07/20 11:12 covid pending Assessment: 02/07/20 11:12 alcohol withdrawal Plan: ativan regiment
--- NOTE | 2020-02-07 14:57 | CONSULT ---
[facility] Psychiatric Consult - Data Date of interview: 02/07/20 Psychiatric History: Patient was approached at bedside. He was somewhat sedated and told health underwriter:" I cannot talk to you now" Please reconsult when patient is more appropriate for interview"
[2020-02-07] MEDS: THIAMINE HCL 100 MG TABLET (FP) PO SCH (22:40)
[2020-02-07] MEDS: MELATONIN 5 MG TABLETS PO SCH (22:40)
[2020-02-08] MEDS: LORazepam 1 MG TABLET PO SCH ×4 (05:50→22:14)
[2020-02-08] MEDS: hydrOXYzine PAMOATE 25 MG CAPSULE (FP) PO SCH ×5 (05:51→22:14)
--- NOTE | 2020-02-08 10:10 | PN ---
S CIWA - CIWA Score Nausea/Vomitin-No Nausea/No Vomiting Muscle Tremors: 2 Anxiety: 1-Mildly Anxious Agitation: 0-Normal Activity Paroxysmal Sweats: 1-Minimal Palms Moist Orientation: 0-Oriented Tacttile Disturbances: 0-None Auditory Disturbances: 0-None Visual Disturbances: 0-None Headache: 0-None Present CIWA-Ar Total Score: 4 S Progress Note (SOAP) Subjective: Asking to see counselor for discharge plan. Slight tremor, anxiety and sweats Objective: 02/08/20 10:08 PE Gnl: WDWN, in no distress, in bed Mental status: normal Motor: moves limbs well Coord: mild tremor Home Medication List Medication Instructions Recorded Confirmed Type NK [No Known Home Medication] 05/28/15 02/06/20 History Active Medications Generic Name Dose Route Start Last Admin Trade Name Freq PRN Reason Stop Dose Admin Acetaminophen 650 mg 02/06/20 13:17 Tylenol - PO Q6H PRN PAIN LEVEL 4 - 6 Acetaminophen 650 mg 02/06/20 13:17 Tylenol - PO Q6H PRN FEVER Al Hydroxide/Mg Hydroxide 30 ml 02/06/20 13:17 Mylanta Oral Suspension - PO Q6H PRN DYSPEPSIA Bismuth Subsalicylate 524 mg 02/06/20 13:17 Pepto-Bismol - PO Q1H PRN DIARRHEA Eucalyptus/Menthol/Phenol/Sorbitol 1 each 02/06/20 13:17 Cepastat Lozenge - MM 02/12/20 13:18 Q4H PRN SORE THROAT Hydroxyzine Pamoate 25 mg 02/06/20 14:00 02/08/20 05:51 Vistaril - PO 02/12/20 13:18 25 mg Q4HWA OWEN Administration Ibuprofen 400 mg 02/06/20 13:17 Motrin - PO Q6H PRN PAIN LEVEL 1 - 3 Lorazepam 1 mg 02/08/20 05:00 02/08/20 05:50 Ativan - PO 02/08/20 23:01 1 mg 0500,1100,1700,2300 OWEN Administration Lorazepam 1 mg 02/06/20 13:17 Ativan - PO 02/08/20 23:59 Q4H PRN Symptoms of Withdrawal Lorazepam 0.5 mg 02/09/20 05:00 Ativan - PO 02/09/20 23:01 Q6H OWEN Lorazepam 0.5 mg 02/09/20 00:00 Ativan - PO 02/10/20 00:00 Q4H PRN Symptoms of Withdrawal Lorazepam 0.5 mg 02/10/20 05:00 Ativan - PO 02/10/20 05:01 ONCE ONE Magnesium Citrate 300 ml 02/06/20 13:17 Citroma - PO Q48H PRN CONSTIPATION Magnesium Hydroxide 30 ml 02/06/20 13:17 Milk Of Magnesia - PO PRN PRN CONSTIPATION Melatonin 5 mg 02/06/20 22:00 02/07/20 22:40 Melatonin PO 5 mg HS OWEN Administration Methocarbamol 500 mg 02/06/20 13:17 Robaxin - PO 02/12/20 13:18 Q6H PRN MUSCLE SPASMS Nicotine 7 mg 02/06/20 13:30 02/07/20 10:37 Nicoderm Patch - TD Not Given DAILY OWEN Nicotine Polacrilex 2 mg 02/06/20 13:17 Nicorette Gum - BUC Q2H PRN NICOTINE REPLACEMENT RX Multivit/Folic Acid/Iron 1 tab 02/06/20 13:30 02/07/20 10:37 Vitamins (Sjr) - PO 1 tab DAILY OWEN Administration Thiamine HCl 100 mg 02/06/20 22:00 02/07/20 22:40 Vitamin B1 - PO 100 mg HS OWEN Administration Abnormal Lab Results 02/07/20 02/07/20 08:00 08:00 WBC 3.6 L Anion Gap 7 L Random Glucose 113 H Vital Signs Temperature 98.2 F 02/08/20 08:40 Pulse Rate 73 02/08/20 08:40 Respiratory Rate 18 02/08/20 08:40 Blood Pressure 135/95 02/08/20 08:40 O2 Sat by Pulse Oximetry (%) 99 02/08/20 08:40 Assessment: 02/08/20 10:09 1. Alcohol use disorder Plan: 1. Ativan taper, projected completion on 02/09 2. COVID negative 3. Plan is discharge to [facility] on Friday 02/09, will send meds to [place] or [facility] RX
[2020-02-08] MEDS: PRENATAL VITAMINS W/ FOLIC ACID TABLET (FP) PO SCH (10:53)
[2020-02-08] MEDS: NICOTINE 7 MG/24 HOURS TOPICAL PATCH TD SCH (10:55)
[2020-02-08] MEDS: THIAMINE HCL 100 MG TABLET (FP) PO SCH (22:15)
[2020-02-08] MEDS: MELATONIN 5 MG TABLETS PO SCH (22:15)
[2020-02-09] MEDS ORDERED: LORazepam 0.5 MG TABLET PO PRN
[2020-02-09] MEDS: LORazepam 0.5 MG TABLET PO SCH ×4 (05:49→22:00)
[2020-02-09] MEDS: hydrOXYzine PAMOATE 25 MG CAPSULE (FP) PO SCH ×5 (05:49→21:58)
[2020-02-09] MEDS: PRENATAL VITAMINS W/ FOLIC ACID TABLET (FP) PO SCH (10:48)
[2020-02-09] MEDS: NICOTINE 7 MG/24 HOURS TOPICAL PATCH TD SCH (10:48)
--- NOTE | 2020-02-09 16:09 | PN ---
S CIWA - CIWA Score Nausea/Vomitin-No Nausea/No Vomiting Muscle Tremors: 1-None Visible, but [place] Anxiety: 3 Agitation: 1-Slight > Activity Paroxysmal Sweats: No Perspiration Orientation: 0-Oriented Tacttile Disturbances: 0-None Auditory Disturbances: 0-None Visual Disturbances: 0-None Headache: 0-None Present CIWA-Ar Total Score: 5 BHS Progress Note (SOAP) Subjective: Anxious, Tremors (mild). Objective: Patient A & O X 3, Observed Ambulating on Detox Unit Unassisted. In No Acute Distress. 02/09/20 16:07 Vital Signs Temperature 97.8 F 02/09/20 12:20 Pulse Rate 82 02/09/20 12:20 Respiratory Rate 18 02/09/20 12:20 Blood Pressure 130/91 02/09/20 12:20 O2 Sat by Pulse Oximetry (%) 100 02/09/20 12:20 Laboratory Tests 02/06/20 02/07/20 02/07/20 15:00 08:00 08:00 WBC 3.6 L RBC 4.52 Hgb 13.8 Hct 41.5 MCV 91.8 MCH 30.5 MCHC 33.2 RDW 14.5 Plt Count 267 MPV 7.8 Sodium Potassium Chloride Carbon Dioxide Anion Gap BUN Creatinine Est GFR (CKD-EPI)AfAm Est GFR (CKD-EPI)NonAf Random Glucose Calcium Total Bilirubin AST ALT Alkaline Phosphatase Total Protein Albumin Syphilis Serology Non-reactive COVID-19 (TRE) Not detected 02/07/20 08:00 WBC RBC Hgb Hct MCV MCH MCHC RDW Plt Count MPV Sodium 140 Potassium 3.8 Chloride 107 Carbon Dioxide 25 Anion Gap 7 L BUN 12.8 Creatinine 0.9 Est GFR (CKD-EPI)AfAm 114.21 Est GFR (CKD-EPI)NonAf 98.54 Random Glucose 113 H Calcium 8.8 Total Bilirubin 0.8 AST 23 ALT 18 Alkaline Phosphatase 55 Total Protein 7.7 Albumin 3.5 Syphilis Serology COVID-19 (TRE) Lab Results noted. Assessment: 02/09/20 16:07 WITHDRAWAL SYMPTOMS. LEUKOPENIA. Plan: Continue Detox. Patient scheduled for d/c from detox unit tomorrow.
[2020-02-09] MEDS: THIAMINE HCL 100 MG TABLET (FP) PO SCH (21:57)
[2020-02-09] MEDS: MELATONIN 5 MG TABLETS PO SCH (21:58)
[2020-02-10] MEDS ORDERED: LORazepam 0.5 MG TABLET PO ONE (05:00)
[2020-02-10] MEDS: hydrOXYzine PAMOATE 25 MG CAPSULE (FP) PO SCH (06:28)
[2020-02-10 06:59] VITALS: BP 147/90; PULSE 80; TEMP 97.1
--- NOTE | 2020-02-10 09:49 | DS ---
[facility] Detox Discharge Summary Admission Date: 02/06/20 Discharge Date: 02/10/20 - History Present History: Alcohol Dependence Additional Comments: 49 years old male admitted on 02/06/20 for alcohol withdrawal sx management treated with ativan detox regiment rejects psychiatric evaluation mr pike has completed the ativan regiment and is tolerated well alert oriented x 3 speech clearly coherently cardiac [id number] regular rate rhythm respiratory clear lung sounds bilaterally on auscultation skin warm and dry Pertinent Past History: time for discharge 35 minutes - Physical Exam Results Vital Signs: Vital Signs Temperature 97.1 F L 02/10/20 06:58 Pulse Rate 80 02/10/20 06:58 Respiratory Rate 18 02/10/20 06:58 Blood Pressure 147/90 02/10/20 06:58 O2 Sat by Pulse Oximetry (%) 99 02/10/20 06:58 Pertinent Admission Physical Exam Findings: alcohol withdrawal Laboratory Tests 02/06/20 02/07/20 02/07/20 15:00 08:00 08:00 WBC 3.6 L RBC 4.52 Hgb 13.8 Hct 41.5 MCV 91.8 MCH 30.5 MCHC 33.2 RDW 14.5 Plt Count 267 MPV 7.8 Sodium Potassium Chloride Carbon Dioxide Anion Gap BUN Creatinine Est GFR (CKD-EPI)AfAm Est GFR (CKD-EPI)NonAf Random Glucose Calcium Total Bilirubin AST ALT Alkaline Phosphatase Total Protein Albumin Syphilis Serology Non-reactive COVID-19 (TRE) Not detected 02/07/20 08:00 WBC RBC Hgb Hct MCV MCH MCHC RDW Plt Count MPV Sodium 140 Potassium 3.8 Chloride 107 Carbon Dioxide 25 Anion Gap 7 L BUN 12.8 Creatinine 0.9 Est GFR (CKD-EPI)AfAm 114.21 Est GFR (CKD-EPI)NonAf 98.54 Random Glucose 113 H Calcium 8.8 Total Bilirubin 0.8 AST 23 ALT 18 Alkaline Phosphatase 55 Total Protein 7.7 Albumin 3.5 Syphilis Serology COVID-19 (TRE) lab noted glucose elevation will follow up with [facility] - Treatment Hospital Course: Detox Protocol Followed, Detoxed Safely, Responded well, Discharged Condition Good, Rehab Referral Accepted Patient has Accepted a Re[facility] Referral [facility]: [facility] - Medication Discharge Medications: Ambulatory Orders NK [No Known Home Medication] 05/28/15 - Diagnosis (1) Substance induced mood disorder Status: Suspected (2) Alcohol dependence with withdrawal, uncomplicated Status: Acute (3) Nicotine dependence Status: Acute Qualifiers: Nicotine product type: cigarettes Substance use status: in withdrawal Qualified Code(s): F17.213 - Nicotine dependence, cigarettes, with withdrawal (4) Positive PPD Status: Resolved - AMA Did Patient Leave Against Medical Advice: No CIWA Score - CIWA Score Nausea/Vomitin-No Nausea/No Vomiting Muscle Tremors: 1-None Visible, but [place] Anxiety: 1-Mildly Anxious Agitation: 0-Normal Activity Paroxysmal Sweats: No Perspiration Orientation: 0-Oriented Tacttile Disturbances: 0-None Auditory Disturbances: 0-None Visual Disturbances: 0-None Headache: 0-None Present CIWA-Ar Total Score: 2
== END 2020-02-10 09:55 | disposition home or self-care (01) | DRG 774 ==
LOC: YASAS 11:01 → Y3N 14:31
PROVIDERS: ADMIT Allergy & Immunology; ATTEND Allergy & Immunology
PROC: HZ2ZZZZ Detoxification Services for Substance Abuse Treatment (ICD-10-PCS; principal; 2020-02-06)
DX: F10.230 Alcohol dependence with withdrawal, uncomplicated (principal); F14.20 Cocaine dependence, uncomplicated; F12.20 Cannabis dependence, uncomplicated; F17.210 Nicotine dependence, cigarettes, uncomplicated; F19.24 Other psychoactive substance dependence with psychoactive substance-induced mood disorder; D72.819 Decreased white blood cell count, unspecified; R76.11 Nonspecific reaction to tuberculin skin test without active tuberculosis; Z98.890 Other specified postprocedural states
CPT/HCPCS: 36415; 80053; 85027; 86780; U0003

== ENCOUNTER 2020-07-31 08:31 | Inpatient (IN) | payer OTHER ==
[2020-07-31 09:13] VITALS: BMI 23.3
[2020-07-31] MEDS ORDERED: ONDANSETRON *ODT* 4 MG TABLET SL PRN (11:15)
[2020-07-31] MEDS ORDERED: BISMUTH SUBSALICYLATE 262 MG/15 ML BTL PO PRN (11:15)
[2020-07-31] MEDS ORDERED: IBUPROFEN 400 MG TABLET (FP) PO PRN (11:15)
[2020-07-31] MEDS ORDERED: chlordiazePOXIDE HCL 25 MG CAPSULE PO PRN (11:15)
[2020-07-31] MEDS ORDERED: METHOCARBAMOL 500 MG TABLET PO PRN (11:15)
[2020-07-31] MEDS ORDERED: ACETAMINOPHEN 325 MG TABLET (FP) PO PRN ×2 (11:15)
[2020-07-31] MEDS ORDERED: NICOTINE POLACRILEX 2 MG GUM BUC PRN (11:15)
[2020-07-31] MEDS ORDERED: MAG HYDROX/AL HYDROX/SIMETH 30 ML UNIT-DOSE CUP PO PRN (11:15)
[2020-07-31] MEDS ORDERED: MAGNESIUM CITRATE 300 ML BOTTLE PO PRN (11:15)
[2020-07-31] MEDS ORDERED: MENTHOL/PHENOL 1 EACH UD MM PRN (11:15)
[2020-07-31] MEDS ORDERED: MAGNESIUM HYDROX 2400MG/30ML ORAL SUSPENSION 30 ML CUP PO PRN (11:15)
[2020-07-31] MEDS: NICOTINE 14 MG/24 HOURS TOPICAL PATCH TD SCH (13:19)
[2020-07-31] MEDS: hydrOXYzine PAMOATE 25 MG CAPSULE (FP) PO SCH ×3 (14:40→22:19)
[2020-07-31 16:22] LABS: POTASSIUM 3.7 mmol/L (3.5-5.1)
[2020-07-31 16:29] LABS: HEMATOCRIT 39.9 % (35.4-49); HEMOGLOBIN 13.5 GM/dL (11.7-16.9); MCH 31.3 pg (25.7-33.7); MCHC 33.9 g/dl (32.0-35.9); MEAN CELL VOLUME 92.4 fl (80-96); MEAN PLT VOLUME 7.4 fl (7.5-11.1); PLATELET COUNT 241 K/MM3 (134-434); RBC 4.32 M/mm3 (4.00-5.60); RDW 14.3 % (11.9-15.9); WHITE BLOOD COUNT 3.3 K/mm3 (4.0-10.0)
[2020-07-31 16:30] LABS: BLOOD UREA NITROGEN 10.9 mg/dL (7-18)
[2020-07-31 16:32] LABS: ALBUMIN 3.4 g/dl (3.4-5.0); CALCIUM 8.7 mg/dL (8.5-10.1)
[2020-07-31 16:34] LABS: CREATININE 0.9 mg/dL (0.55-1.3)
[2020-07-31 16:37] LABS: BILIRUBIN,TOTAL 0.2 mg/dL (0.2-1); TOT PROT 7.2 g/dl (6.4-8.2)
[2020-07-31] MEDS: chlordiazePOXIDE HCL 25 MG CAPSULE PO SCH ×2 (17:58→22:19)
[2020-07-31] MEDS: MELATONIN 5 MG TABLETS PO SCH (22:19)
[2020-07-31] MEDS: THIAMINE HCL 100 MG TABLET (FP) PO SCH (22:19)
[2020-08-01] MEDS: chlordiazePOXIDE HCL 25 MG CAPSULE PO SCH ×4 (06:56→22:17)
[2020-08-01] MEDS: hydrOXYzine PAMOATE 25 MG CAPSULE (FP) PO SCH ×5 (06:56→22:18)
[2020-08-01] MEDS: PRENATAL VITAMINS W/ FOLIC ACID TABLET (FP) PO SCH (10:48)
[2020-08-01] MEDS: NICOTINE 14 MG/24 HOURS TOPICAL PATCH TD SCH (10:54)
[2020-08-01] MEDS: THIAMINE HCL 100 MG TABLET (FP) PO SCH (22:18)
[2020-08-01] MEDS: MELATONIN 5 MG TABLETS PO SCH (22:18)
[2020-08-02] MEDS: chlordiazePOXIDE HCL 25 MG CAPSULE PO SCH ×4 (06:40→22:25)
[2020-08-02] MEDS: hydrOXYzine PAMOATE 25 MG CAPSULE (FP) PO SCH ×5 (06:41→22:24)
[2020-08-02] MEDS: PRENATAL VITAMINS W/ FOLIC ACID TABLET (FP) PO SCH (10:45)
[2020-08-02] MEDS: NICOTINE 14 MG/24 HOURS TOPICAL PATCH TD SCH (10:48)
[2020-08-02] MEDS: MELATONIN 5 MG TABLETS PO SCH (22:24)
[2020-08-02] MEDS: THIAMINE HCL 100 MG TABLET (FP) PO SCH (22:24)
[2020-08-03] MEDS ORDERED: chlordiazePOXIDE HCL 10 MG CAPSULE PO PRN
[2020-08-03] MEDS: chlordiazePOXIDE HCL 10 MG CAPSULE PO SCH ×4 (05:59→22:22)
[2020-08-03] MEDS: hydrOXYzine PAMOATE 25 MG CAPSULE (FP) PO SCH ×5 (06:00→22:22)
[2020-08-03] MEDS: NICOTINE 14 MG/24 HOURS TOPICAL PATCH TD SCH (10:22)
[2020-08-03] MEDS: PRENATAL VITAMINS W/ FOLIC ACID TABLET (FP) PO SCH (10:23)
[2020-08-03] MEDS: THIAMINE HCL 100 MG TABLET (FP) PO SCH (22:22)
[2020-08-03] MEDS: MELATONIN 5 MG TABLETS PO SCH (22:22)
[2020-08-04] MEDS: chlordiazePOXIDE HCL 10 MG CAPSULE PO SCH ×2 (07:00→18:36)
[2020-08-04] MEDS: hydrOXYzine PAMOATE 25 MG CAPSULE (FP) PO SCH ×5 (07:00→22:33)
[2020-08-04] MEDS: NICOTINE 14 MG/24 HOURS TOPICAL PATCH TD SCH (10:38)
[2020-08-04] MEDS: PRENATAL VITAMINS W/ FOLIC ACID TABLET (FP) PO SCH (10:39)
[2020-08-04] MEDS ORDERED: COLLOIDAL OATMEAL 1 BAR EACH TP PRN (11:49)
[2020-08-04] MEDS: MELATONIN 5 MG TABLETS PO SCH (22:33)
[2020-08-04] MEDS: THIAMINE HCL 100 MG TABLET (FP) PO SCH (22:33)
[2020-08-05 00:02] VITALS: TEMP 98.2
[2020-08-05] MEDS ORDERED: chlordiazePOXIDE HCL 10 MG CAPSULE PO ONE (05:00)
[2020-08-05] MEDS: hydrOXYzine PAMOATE 25 MG CAPSULE (FP) PO SCH ×2 (06:00→10:03)
[2020-08-05 06:02] VITALS: BP 124/71; PULSE 78
[2020-08-05] MEDS: PRENATAL VITAMINS W/ FOLIC ACID TABLET (FP) PO SCH (10:03)
[2020-08-05] MEDS: NICOTINE 14 MG/24 HOURS TOPICAL PATCH TD SCH (10:03)
== END 2020-08-05 12:26 | disposition other institution (70) | DRG 774 ==
LOC: YASAS 08:31 → Y6N 12:06
PROVIDERS: ADMIT Allergy & Immunology; ATTEND Allergy & Immunology
PROC: HZ2ZZZZ Detoxification Services for Substance Abuse Treatment (ICD-10-PCS; principal; 2020-07-31)
DX: F10.230 Alcohol dependence with withdrawal, uncomplicated (principal); F14.20 Cocaine dependence, uncomplicated; F16.10 Hallucinogen abuse, uncomplicated; F12.20 Cannabis dependence, uncomplicated; F17.210 Nicotine dependence, cigarettes, uncomplicated; R76.11 Nonspecific reaction to tuberculin skin test without active tuberculosis; Z98.890 Other specified postprocedural states; Z59.0 Homelessness
CPT/HCPCS: 36415; 80053; 85027; 86780; C9803; U0003

== ENCOUNTER 2021-02-09 10:31 | Inpatient (IN) | payer OTHER ==
[2021-02-09 11:16] VITALS: BMI 20.7
[2021-02-09] MEDS ORDERED: IBUPROFEN 400 MG TABLET (FP) PO PRN (12:42)
[2021-02-09] MEDS ORDERED: NICOTINE POLACRILEX 2 MG GUM BUC PRN (12:42)
[2021-02-09] MEDS ORDERED: BISMUTH SUBSALICYLATE 262 MG/15 ML BTL PO PRN (12:42)
[2021-02-09] MEDS ORDERED: MENTHOL/PHENOL 1 EACH UD MM PRN (12:42)
[2021-02-09] MEDS ORDERED: METHOCARBAMOL 500 MG TABLET PO PRN (12:42)
[2021-02-09] MEDS ORDERED: LORazepam 1 MG TABLET PO PRN (12:42)
[2021-02-09] MEDS ORDERED: MAGNESIUM CITRATE 300 ML BOTTLE PO PRN (12:42)
[2021-02-09] MEDS ORDERED: MAGNESIUM HYDROX 2400MG/30ML ORAL SUSPENSION 30 ML CUP PO PRN (12:42)
[2021-02-09] MEDS ORDERED: ACETAMINOPHEN 325 MG TABLET (FP) PO PRN ×2 (12:42)
[2021-02-09] MEDS ORDERED: MAG HYDROX/AL HYDROX/SIMETH 30 ML UNIT-DOSE CUP PO PRN (12:42)
[2021-02-09] MEDS ORDERED: ONDANSETRON *ODT* 4 MG TABLET SL PRN (12:42)
[2021-02-09] MEDS: PRENATAL VITAMINS W/ FOLIC ACID TABLET (FP) PO SCH (14:04)
[2021-02-09] MEDS: NICOTINE 14 MG/24 HOURS TOPICAL PATCH TD SCH (14:04)
[2021-02-09] MEDS: hydrOXYzine PAMOATE 25 MG CAPSULE (FP) PO SCH ×3 (14:05→23:09)
[2021-02-09 17:36] LABS: HEMATOCRIT 40.6 % (35.4-49); HEMOGLOBIN 13.8 GM/dL (11.7-16.9); MCH 31.6 pg (25.7-33.7); MCHC 34.1 g/dl (32.0-35.9); MEAN CELL VOLUME 92.7 fl (80-96); MEAN PLT VOLUME 7.5 fl (7.5-11.1); PLATELET COUNT 203 10^3/uL (134-434); RBC 4.38 M/mm3 (4.00-5.60); RDW 13.2 % (11.9-15.9)
[2021-02-09 17:37] LABS: CALCIUM 8.2 mg/dL (8.5-10.1)
[2021-02-09 17:38] LABS: ALBUMIN 3.4 g/dl (3.4-5.0); BLOOD UREA NITROGEN 9.3 mg/dL (7-18)
[2021-02-09 17:41] LABS: CREATININE 0.8 mg/dL (0.55-1.3)
[2021-02-09 17:42] LABS: BILIRUBIN,TOTAL 0.6 mg/dL (0.2-1); TOT PROT 7.5 g/dl (6.4-8.2)
[2021-02-09] MEDS: LORazepam 2 MG TABLET PO SCH ×2 (19:07→22:33)
[2021-02-09] MEDS: THIAMINE HCL 100 MG TABLET (FP) PO SCH (22:33)
[2021-02-09] MEDS: MELATONIN 5 MG TABLETS PO SCH (23:08)
[2021-02-10] MEDS: hydrOXYzine PAMOATE 25 MG CAPSULE (FP) PO SCH ×5 (06:34→22:30)
[2021-02-10] MEDS: LORazepam 2 MG TABLET PO SCH ×4 (06:34→22:30)
[2021-02-10] MEDS: NICOTINE 14 MG/24 HOURS TOPICAL PATCH TD SCH (10:25)
[2021-02-10] MEDS: PRENATAL VITAMINS W/ FOLIC ACID TABLET (FP) PO SCH (10:25)
[2021-02-10] MEDS: THIAMINE HCL 100 MG TABLET (FP) PO SCH (22:29)
[2021-02-10] MEDS: MELATONIN 5 MG TABLETS PO SCH (22:31)
[2021-02-11] MEDS: LORazepam 1 MG TABLET PO SCH ×4 (05:50→22:24)
[2021-02-11] MEDS: hydrOXYzine PAMOATE 25 MG CAPSULE (FP) PO SCH ×5 (05:51→22:24)
[2021-02-11] MEDS: PRENATAL VITAMINS W/ FOLIC ACID TABLET (FP) PO SCH (10:19)
[2021-02-11] MEDS: NICOTINE 14 MG/24 HOURS TOPICAL PATCH TD SCH (10:23)
[2021-02-11] MEDS: THIAMINE HCL 100 MG TABLET (FP) PO SCH (22:24)
[2021-02-11] MEDS: MELATONIN 5 MG TABLETS PO SCH (22:24)
[2021-02-12] MEDS ORDERED: LORazepam 0.5 MG TABLET PO PRN
[2021-02-12] MEDS: hydrOXYzine PAMOATE 25 MG CAPSULE (FP) PO SCH ×5 (06:05→23:44)
[2021-02-12] MEDS: LORazepam 0.5 MG TABLET PO SCH ×4 (06:06→23:43)
[2021-02-12] MEDS: PRENATAL VITAMINS W/ FOLIC ACID TABLET (FP) PO SCH (10:17)
[2021-02-12] MEDS: NICOTINE 14 MG/24 HOURS TOPICAL PATCH TD SCH (10:38)
[2021-02-12] MEDS: MELATONIN 5 MG TABLETS PO SCH (23:44)
[2021-02-12] MEDS: THIAMINE HCL 100 MG TABLET (FP) PO SCH (23:44)
[2021-02-13] MEDS ORDERED: LORazepam 0.5 MG TABLET PO ONE (05:00)
[2021-02-13] MEDS: hydrOXYzine PAMOATE 25 MG CAPSULE (FP) PO SCH ×2 (05:51→09:06)
[2021-02-13 06:25] VITALS: BP 123/84; PULSE 88; TEMP 98.6
[2021-02-13] MEDS: PRENATAL VITAMINS W/ FOLIC ACID TABLET (FP) PO SCH (09:06)
[2021-02-13] MEDS: NICOTINE 14 MG/24 HOURS TOPICAL PATCH TD SCH (09:06)
== END 2021-02-13 09:13 | disposition home or self-care (01) | DRG 774 ==
LOC: YASAS 10:31 → Y6N 13:18
PROVIDERS: ADMIT Allergy & Immunology; ATTEND Allergy & Immunology
PROC: HZ2ZZZZ Detoxification Services for Substance Abuse Treatment (ICD-10-PCS; principal; 2021-02-09)
DX: F10.230 Alcohol dependence with withdrawal, uncomplicated (principal); F14.20 Cocaine dependence, uncomplicated; F12.20 Cannabis dependence, uncomplicated; F17.210 Nicotine dependence, cigarettes, uncomplicated; D72.819 Decreased white blood cell count, unspecified; Z56.0 Unemployment, unspecified
CPT/HCPCS: 36415; 71045-TC-FY; 80053; 85027; 86780; 93005; 93010; C9803; U0003; U0005